=== PATIENT | female | born 1990 | race Caucasian/White ===

== ENCOUNTER 2016-07-29 06:39 | Day surgery (SDC) | payer OTHER ==
--- NOTE | 2016-07-25 15:42 | GHP ---
[f rep st] PREOP HISTORY AND PHYSICAL DATE OF ADMISSION: 07/29/2016 DATE OF SURGERY: Her scheduled procedure is on 07/29/2016, at [facility]. HISTORY OF PRESENT ILLNESS: The patient is a 25-year-old woman who presented to the clinic with a c hief complaint of a posterior neck mass. It has been present for the past couple of years and is pr ogressively getting larger. She has tenderness of the surrounding muscles. She denies any redness, swelling, or drainage. She does not have soft tissue masses elsewhere on her body. She had an ult rasound on 07/13/2016, which showed a 5 x 2 cm soft tissue mass of the posterior neck, most likely c onsistent with a lipoma. She desires excision. PAST MEDICAL HISTORY: Bipolar disorder, HPV infection. PAST SURGICAL HISTORY: Arthroscopic right knee surgery, right ankle tendon repair, wisdom teeth ext raction, right wrist tendon repair. MEDICATIONS: Abilify, Adderall, Ambien, fluconazole, Lamictal, minocycline, Mirena, Seroquel. ALLERGIES: No known drug allergies. FAMILY HISTORY: Maternal grandfather with heart disease and hypertension. Paternal grandfather wit h an NE at age 75. Mother with skin cancer. SOCIAL HISTORY: She reports drinking alcohol twice weekly. She denies tobacco or recreational drug use. She works as a director geophysical laboratory. REVIEW OF SYSTEMS: A 10-point review of systems is negative aside from the HPI. PHYSICAL EXAMINATION: GENERAL: Well-developed, well-nourished woman in no acute distress. HEENT: Normocephalic, atraumatic. No hearing deficits. Pupils equal and round. No scleral icterus. Muc ous membranes moist. NECK: Trachea midline. Large, soft tissue mass at the base of her posterior neck, nontender without overlying skin changes. LUNGS: No increased work of breathing. Clear to a uscultation bilaterally. CARDIOVASCULAR: Regular rate and rhythm. No peripheral edema. SKIN: Wa rm and dry. MUSCULOSKELETAL: Normal gait, normal nails. PSYCH: Mood and affect normal. IMPRESSION AND PLAN: 25-year-old woman with a large posterior soft tissue mass likely a lipoma. Sh e desires excision. We discussed risks of surgery including, but not limited to, heart attack, stro ke, blood clots, . We discussed risks of infection, bleeding, need for a drain or recurrence. She understands the risks and would like to proceed. The patient was additionally seen by Dr. Rick Cates. /[id number]/MODL
[~2016-07-29 06:39] MED LIST: ceFAZolin 2 GM/DEXTROSE 100 ML IV ONE
[2016-07-29] MEDS ORDERED: LIDOCAINE 1% 2 ML INJ ONE (06:54)
[2016-07-29] MEDS ORDERED: BUPIVACAINE 0.5% 30 ML SDV ONE (07:11)
[2016-07-29] MEDS ORDERED: fentaNYL 100 MCG/2 ML INJ ONE ×2 (08:24→10:11)
[2016-07-29] MEDS ORDERED: PROPOFOL 200 MG/20 ML VIAL ONE (08:24)
[2016-07-29] MEDS ORDERED: ROCURONIUM 50 MG/5 ML VIAL ONE (08:24)
[2016-07-29] MEDS ORDERED: DEXAMETHASONE 4 MG/ML VIAL ONE (08:24)
[2016-07-29] MEDS ORDERED: ONDANSETRON 4 MG/2 ML VIAL ONE (08:24)
[2016-07-29] MEDS ORDERED: LIDOCAINE 2% 5 ML SDV ONE (08:25)
[2016-07-29] MEDS ORDERED: MIDAZOLAM 2 MG/2 ML VIAL ONE (08:37)
[2016-07-29] MEDS ORDERED: SUGAMMADEX SODIUM 200 MG/2 ML VIAL IVP ONE (09:27)
[2016-07-29] MEDS ORDERED: HYDROCODONE/APAP 5/325 TAB ONE (10:32)
--- NOTE | 2016-07-29 12:46 | GOP ---
[f rep st] OPERATIVE REPORT DATE OF OPERATION: 07/29/2016 SURGEON: Lorene Cates MD ANESTHESIA: Jp Hair MD/General. PREOPERATIVE DIAGNOSIS: Posterior neck mass. POSTOPERATIVE DIAGNOSIS: Posterior neck mass. PROCEDURE PERFORMED: Wide local excision of neck mass with complex closure. FINDINGS: Mass appeared to be fatty and measured approximately 5 x 7 x 3 cm. SPECIMENS: Tissue for pathology. ESTIMATED BLOOD LOSS: 10 cc. INDICATIONS: The patient is a 25-year-old woman who has had a large posterior neck mass. She luis e es excision. DESCRIPTION OF PROCEDURE: The patient was brought into the operating room and placed supine on the table, and general anesthesia was administered. She was then placed in a prone position. All bony prominences were padded. Her neck was prepped and draped in the usual sterile fashion. I made an i ncision over the mass, and I created subcutaneous skin flaps. I dissected down beyond the level of the mass which was well-defined. I then released tissue laterally in order to facilitate closing. I closed the wound in 4 layers with 3-0 Vicryl obliterating the deep space. The skin was closed wit h 4-0 Monocryl. Mastisol, Steri-Strips, and a sterile dressing were applied. She was awakened in t operating room. She was placed back in the supine position, awakened in the operating room, extu bated, and transferred to PACU in stable condition. /[id number]/MODL
== END 2016-07-29 12:30 | disposition home or self-care (01) ==
LOC: FSGY 06:39
PROVIDERS: ATTEND Surgery
PROC: 0JB50ZX Excision of Left Neck Subcutaneous Tissue and Fascia, Open Approach, Diagnostic (ICD-10-PCS; principal; 2016-07-29 08:30)
DX: D17.0 Benign lipomatous neoplasm of skin and subcutaneous tissue of head, face and neck (principal); F31.9 Bipolar disorder, unspecified
CPT/HCPCS: J0690; J1100; J2250; J2405; J2704; J3010